=== PATIENT | female | born 1945 | race Hispanic/Latino ===

== ENCOUNTER 2017-05-18 19:03 | Emergency (ER) | payer OTHER ==
[2017-05-18 19:24] LABS: APPEARANCE,URINE Clear (CLEAR); BILIRUBIN,URINE Negative (NEGATIVE); COLOR,URINE Yellow (YELLOW); GLUCOSE, URINE (UA) Negative (NEGATIVE); KETONES,URINE Negative (NEGATIVE); LEUKOCYTE ESTERASE ,URINE Trace (NEGATIVE); NITRATE,URINE Negative (NEGATIVE); OCCULT BLOOD,URINE Negative (NEGATIVE); PH,URINE 5.5 (5.0-8.0); PROTEIN,URINE Negative (NEGATIVE); UROBILINOGEN,URINE 0.2 mg/dL (0.2-1.0)
[2017-05-18] MEDS ORDERED: ONDANSETRON ODT 4 MG TAB ONE (19:30)
[2017-05-18 19:39] LABS: BACTERIA,URINE Rare /HPF (None Seen); RBC,URINE None Seen /HPF (0-1); SQUAMOUS EPITHELIAL CELL,UR 0-2 /LPF (0-2); WBC,URINE 0-1 /HPF (0-1)
[2017-05-18 19:46] LABS: BASOPHILS % (AUTO) 0.6 % (0.0-5.0); EOSINOPHILS % (AUTO) 1.9 % (0.0-8.0); HEMATOCRIT 39.9 % (36-48); LYMPHOCYTES % (AUTO) 27.1 % (21.0-51.0); MEAN CORPUSCULAR HEMOGLOBIN 29.3 pg (27.0-33.0); MEAN CORPUSCULAR VOLUME 86.2 fL (79-99); MONOCYTES % (AUTO) 8.2 % (3.0-13.0); NEUTROPHILS % (AUTO) 62.2 % (40.0-77.0); PLATELET COUNT (AUTO) 287 K/uL (130-400); RED BLOOD CELL COUNT(AUTO) 4.63 MIL/uL (4.00-5.50); RED CELL DISTRIBUTION WIDTH 14.3 % (11.0-15.5); WHITE BLOOD COUNT (AUTO) 7.8 K/uL (4.8-10.8)
[2017-05-18 19:56] LABS: CREATININE 0.9 mg/dL (0.5-1.5); POTASSIUM 3.4 mmol/L (3.5-5.1)
[2017-05-18 20:01] LABS: ALBUMIN 3.9 g/dL (3.5-5.0); BILIRUBIN,TOTAL 0.3 mg/dL (0.2-1.0); TOTAL PROTEIN, SERUM 7.7 g/dL (6.0-8.3)
[2017-05-18] MEDS ORDERED: IOPAMIDOL-370 75 ML VIAL IV ONE (20:11)
[2017-05-18] MEDS ORDERED: SODIUM CHLORIDE 0.9% 500ML 500 ML IV ONE (20:25)
[2017-05-18] MEDS ORDERED: CEFTRIAXONE SODIUM 1 GM ONE (21:24)
== END 2017-05-18 21:34 | disposition home or self-care (01) ==
LOC: EDH 19:03
DX: N39.0 Urinary tract infection, site not specified (principal); E11.9 Type 2 diabetes mellitus without complications; E07.9 Disorder of thyroid, unspecified; E78.5 Hyperlipidemia, unspecified
CPT/HCPCS: 36415; 71260; 74177; 80053; 81001; 83605; 83690; 85025; 93005; 94761; 96361; 96374; 99285; J0696; J7040; Q9967; 71045

== ENCOUNTER → 2018-02-09 | Outpatient (CLI) | payer OTHER ==
[~2018-02-09] MED LIST: ATOR10 PO; LEVO25TA9 PO; METF-445 PO; MIRA25TA PO
== END | disposition home or self-care (01) ==
LOC: RAH 10:46
PROVIDERS: ATTEND Family Medicine
DX: Z12.31 Encounter for screening mammogram for malignant neoplasm of breast (principal)
CPT/HCPCS: 77067

== ENCOUNTER → 2018-12-30 | Outpatient (CLI) | payer OTHER | END | disposition home or self-care (01) | LOC: RAH 09:41 | PROVIDERS: ATTEND Family Medicine | DX: M67.431 Ganglion, right wrist (principal); M06.4 Inflammatory polyarthropathy | CPT/HCPCS: 76882 ==

== ENCOUNTER → 2019-02-20 | Outpatient (CLI) | payer OTHER | END | disposition home or self-care (01) | LOC: OIH 14:35 | PROVIDERS: ATTEND Family Medicine | DX: M06.4 Inflammatory polyarthropathy (principal); M85.88 Other specified disorders of bone density and structure, other site; M47.812 Spondylosis without myelopathy or radiculopathy, cervical region; M40.40 Postural lordosis, site unspecified | CPT/HCPCS: 72040 ==

== ENCOUNTER → 2020-02-21 | Outpatient (CLI) | payer OTHER | END | disposition home or self-care (01) | LOC: OIH 09:50 | PROVIDERS: ATTEND Family Medicine | DX: M79.645 Pain in left finger(s) (principal) | CPT/HCPCS: 73140 ==

== ENCOUNTER → 2022-05-28 | Outpatient (CLI) | payer OTHER | END | disposition home or self-care (01) | LOC: RAH 08:39 | PROVIDERS: ATTEND Internal Medicine Gastroenterology | DX: K21.9 Gastro-esophageal reflux disease without esophagitis (principal); K44.9 Diaphragmatic hernia without obstruction or gangrene; R10.13 Epigastric pain; R13.10 Dysphagia, unspecified | CPT/HCPCS: 74240 ==

== ENCOUNTER → 2023-02-04 | Outpatient (CLI) | payer OTHER | END | disposition home or self-care (01) | LOC: RAH 10:46 | PROVIDERS: ATTEND Internal Medicine Gastroenterology | DX: R10.13 Epigastric pain (principal); R11.0 Nausea | CPT/HCPCS: 78264; A9541 ==

== ENCOUNTER 2023-10-14 11:52 | Emergency (ER) | payer OTHER ==
[~2023-10-14] VITALS: Ht 157.5 cm; Wt 71.7 kg
[2023-10-14 12:30] LABS: BASOPHILS # (AUTO) 0.03 K/uL (0.00-0.20); BASOPHILS % (AUTO) 0.4 % (0.0-5.0); EOSINOPHILS # (AUTO) 0.04 K/uL (0.00-0.70); EOSINOPHILS % (AUTO) 0.5 % (0.0-8.0); HEMATOCRIT 36.2 % (36-48); IMMATURE GRANULOCYTE ABSOLUTE 0.02 K/uL (0-1); LYMPHOCYTES # (AUTO) 1.6 K/uL (1.0-4.8); LYMPHOCYTES % (AUTO) 22.2 % (21.0-51.0); MEAN CORPUSCULAR HEMOGLOBIN 29.1 pg (27.0-33.0); MEAN CORPUSCULAR HGB CONC 33.4 g/dL (32.0-36.0); MONOCYTES # (AUTO) 0.6 K/uL (0.1-1.0); MONOCYTES % (AUTO) 7.8 % (3.0-13.0); NEUTROPHILS # (AUTO) 5.1 K/uL (1.8-7.7); NEUTROPHILS % (AUTO) 68.8 % (40.0-77.0); PLATELET COUNT (AUTO) 310 K/uL (130-400); RED BLOOD CELL COUNT(AUTO) 4.16 MIL/uL (4.00-5.50); RED CELL DISTRIBUTION WIDTH 15.3 % (11.0-15.5); WHITE BLOOD COUNT (AUTO) 7.3 K/uL (4.8-10.8)
[2023-10-14 12:38] LABS: CREATININE 0.7 mg/dL (0.5-1.0)
[2023-10-14 12:47] LABS: ALBUMIN 3.6 g/dL (3.5-5.0); BILIRUBIN,TOTAL 0.4 mg/dL (0.2-1.0); TOTAL PROTEIN, SERUM 7.3 g/dL (6.0-8.3)
[2023-10-14] MEDS: MAG/ALUM/SIMETH 30 ML UDCUP PO ONE (13:35)
[2023-10-14] MEDS: LIDOCAINE HCL 2% VISCOUS 15 ML UDCUP PO ONE (13:35)
[2023-10-14] MEDS: DICYCLOMINE HCL 10 MG/5 ML ML PO ONE (13:35)
[2023-10-14] MEDS: FAMOTIDINE 20MG VIAL IV ONE (13:36)
[2023-10-14 14:12] LABS: APPEARANCE,URINE CLEAR (CLEAR); BILIRUBIN,URINE NEGATIVE (NEGATIVE); COLOR,URINE LIGHT-YELLOW (YELLOW); GLUCOSE, URINE (UA) NEGATIVE (NEGATIVE); KETONES,URINE NEGATIVE (NEGATIVE); LEUKOCYTE ESTERASE ,URINE NEGATIVE Leu/uL (NEGATIVE); NITRATE,URINE NEGATIVE (NEGATIVE); OCCULT BLOOD,URINE NEGATIVE (NEGATIVE); PROTEIN,URINE NEGATIVE (NEGATIVE); UROBILINOGEN,URINE 0.2 mg/dL (0.2-1.0)
[2023-10-14 14:17] LABS: ADD UA MICROSCOPIC YES
[2023-10-14 14:19] LABS: SQUAMOUS EPITHELIAL CELL,UR RARE /HPF (0-2); WBC,URINE 0-1 /HPF (0-1)
[2023-10-14] MEDS ORDERED: OMEP40CA21 PO (16:32)
[2023-10-14] MEDS ORDERED: SUCR1TAB28 PO (16:32)
[2023-10-14 16:42] VITALS: BP 126/66; PULSE 72; RESP 18; O2SAT 99
== END 2023-10-14 16:46 | disposition home or self-care (01) ==
LOC: EDH 11:52
DX: K29.00 Acute gastritis without bleeding (principal); R06.00 Dyspnea, unspecified; E11.9 Type 2 diabetes mellitus without complications; E78.00 Pure hypercholesterolemia, unspecified; K21.9 Gastro-esophageal reflux disease without esophagitis; M19.90 Unspecified osteoarthritis, unspecified site; Z79.84 Long term (current) use of oral hypoglycemic drugs; Z79.899 Other long term (current) drug therapy; Z90.49 Acquired absence of other specified parts of digestive tract; Z98.890 Other specified postprocedural states
CPT/HCPCS: 36415; 71045; 80053; 81001; 83690; 83880; 84484; 85025; 93005

== ENCOUNTER → 2023-12-09 | Outpatient (CLI) | payer OTHER ==
[~2023-12-09] MED LIST changes: +OMEP40CA21 PO; +SUCR1TAB28 PO
== END | disposition home or self-care (01) ==
LOC: RAH 09:46
PROVIDERS: ATTEND Surgery
DX: K44.9 Diaphragmatic hernia without obstruction or gangrene (principal); K21.9 Gastro-esophageal reflux disease without esophagitis
CPT/HCPCS: 74220

== ENCOUNTER → 2024-03-24 | Outpatient (CLI) | payer OTHER ==
[2024-03-24] MEDS: REGADENOSON 0.4 MG/5 ML PF SYG IVP ONE (14:17)
--- NOTE | 2024-04-14 09:06 | HMCSR ---
APPROVED REPORT Height: 5 ft 0in Weight: 156 lbs TEST INDICATIONS Z01.818 ENCOUNTERS FOR PRE PROCEDURE The imaging protocol used to acquire images was Rest Tc-99m/stress Tc-99m 1 day Consent: The procedure was explained and understood by the patient. Informerd consent was witnessed Talat Stout RN First, low dose rest was performed then high dose stress. RESTING DATA: The resting ekg shows: NSR Rest SPECT myocardial perfusion imaging was performed in supine position 40 minutes following the int ravenous injection of 11.2 mCi of Tc-99 Sestamibi. Time of rest injection: 09:33: Date: 03/24/2024 Time of rest imagin:12: Date: 03/24/2024 PHARMACOLOGIC STRESS: Pharmacologic stress test was performed by injecting regadenoson 0.4 mg IV push followed by the intra venous injection of 31.5 mCi of Tc-99 Sestamibi. Time of stress injection: 10:47: Date: 03/24/2024 Time of stress imagin:03: Date: 03/24/2024 Heart Rate at time of stress injection: 66 bpm. Gated Stress SPECT was performed 76 minutes after stress injection. The images were gated to evaluate regional wall motion and calculate left ventricular ejection fracti on. STRESS DETAILS Reason for Termination: Infusion complete Stress Symptoms: Flushing Max HR Achieved: 108 bpm % of APMHR Achieved: 76 Max Blood Pressure: 128/52 mmHg Stress ECG: NSR Arrhythmia: No. ST Change: No. Study quality was good. Lung uptake was Normal. Artifact: No artifact LEFT VENTRICLE Size: The left ventricular size is normal. Systolic Function:The left ventricular systolic function is normal. Wall Motion: No regional wall motion abnormalities noted. The left ventricular ejection fraction was calculated to be 88%.TID = . LV PERFUSION The rest and stress images show normal perfusion. No transient ischemic dilation of the left ventricle. RV Size/Shape Not visualized. IMPRESSION Normal pharmacologic nuclear stress test. Diseased Vessels: Normal Global LV Function: Normal Stress ECG Summary: Normal LV Perfusion Summary: Normal Conclusion The stress and resting images show normal perfusion.
== END | disposition home or self-care (01) ==
LOC: SHCH 09:13
PROVIDERS: ATTEND Internal Medicine
DX: Z01.818 Encounter for other preprocedural examination (principal); Z79.899 Other long term (current) drug therapy
CPT/HCPCS: 78452; 93017; J2785; A9500 ×2